=== PATIENT | female | born 1980 | race Hispanic/Latino ===

== ENCOUNTER 2017-01-10 04:02 | Emergency (ER) | payer OTHER ==
[2017-01-10 04:10] VITALS: BMI 23.5
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
[2017-01-10 04:21] VITALS: BP 142/89; PULSE 118; RESP 18; TEMP 98; O2SAT 100
== END 2017-01-10 04:25 | disposition home or self-care (01) ==
LOC: H.ER 04:02
DX: Z04.8 Encounter for examination and observation for other specified reasons (principal)